=== PATIENT | male | born 2005 | race Caucasian/White ===

== ENCOUNTER 2023-08-08 07:41 | Emergency (ER) | payer MEDICAID, OTHER ==
[~2023-08-08] VITALS: Ht 170.2 cm; Wt 70.3 kg
[~2023-08-08 07:41] MED LIST: [UNRECOGNIZED DRUG - OTHER] PO
[2023-08-08 07:59] VITALS: BP 125/81; PULSE 94; RESP 20; TEMP 97; O2SAT 100
[2023-08-08] MEDS: BACITRACIN OINT 500 UNITS/GM PKT TP ONE ×2 (08:37→08:38)
[2023-08-08 08:52] VITALS: BP 125/81; PULSE 94; RESP 20; TEMP 97; O2SAT 100
== END 2023-08-08 08:53 | disposition home or self-care (01) ==
LOC: MED 07:41
DX: T24.211A Burn of second degree of right thigh, initial encounter (principal); T21.22XA Burn of second degree of abdominal wall, initial encounter; Z02.89 Encounter for other administrative examinations; Z79.899 Other long term (current) drug therapy; X10.2XXA Contact with fats and cooking oils, initial encounter; Y93.89 Activity, other specified; Y92.89 Other specified places as the place of occurrence of the external cause; Y99.8 Other external cause status
CPT/HCPCS: 16020; 99283